=== PATIENT | female | born 1955 | race Caucasian/White ===

== ENCOUNTER → 2016-12-13 | Outpatient (CLI) | payer MEDICAID ==
[2016-12-13 13:20] LABS: ALT 26 U/L (9-52); AST 28 U/L (14-36); Alkaline Phosphatase 72 U/L (38-126); Anion Gap 12 mmol/L; Blood Urea Nitrogen 19 mg/dL (7-17); Calcium 9.8 mg/dL (8.4-10.2); Carbon Dioxide 29 mmol/L (22-30); Chloride 106 mmol/L (98-107); Glucose 128 mg/dL (74-99); Non-African American GFR(MDRD) 57 (>60 ml/min/1.73 sqM); Potassium 3.8 mmol/L (3.5-5.1); Sodium 147 mmol/L (137-145); Total Bilirubin 0.7 mg/dL (0.2-1.3); Total Protein 6.5 g/dL (6.3-8.2)
[2016-12-13 13:23] LABS: Basophils # (A) 0.1 k/uL (0-0.2); Basophils % (A) 1 %; CH 30.3; CHCM 34.7; Eosinophils # (A) 0.3 k/uL (0-0.7); Eosinophils % (A) 3 %; HCT 43.2 % (34.0-46.0); HGB 14.6 gm/dL (11.4-16.0); Luc # (Auto) 0.13; Luc % (Auto) 2; Lymphocytes # (A) 1.7 k/uL (1.0-4.8); Lymphocytes % (A) 20 %; MCH 29.7 pg (25.0-35.0); MCHC 33.8 g/dL (31.0-37.0); Mean Platelet Volume 7.8; Monocytes # (A) 0.5 k/uL (0-1.0); Monocytes % (A) 6 %; Neutrophils # (A) 5.6 k/uL (1.3-7.7); Neutrophils % (A) 69 %; RDW 14.6 % (11.5-15.5); WBC 8.2 k/uL (3.8-10.6); WBC (Perox) 7.98
[2016-12-13 13:53] LABS: Creatine Kinase MB 0.9 ng/mL (0.0-2.4); Troponin I <0.012 ng/mL (0.000-0.034)
== END ==
LOC: LABWHC1 11:57
PROVIDERS: ATTEND Family Medicine
DX: R07.9 Chest pain, unspecified (principal)
CPT/HCPCS: 36415; 80053; 82553; 84439; 84443; 84484; 85025

== ENCOUNTER → 2017-03-29 | Outpatient (CLI) | payer MEDICAID ==
--- NOTE | 2017-04-03 11:49 | MM ---
Reason for exam: screening (asymptomatic). Last mammogram was performed 1 year ago. History: Patient is postmenopausal. Family history of breast cancer in grandmother. Physical Findings: A clinical breast exam by your physician is recommended on an annual basis and results should be correlated with mammographic findings. MG Screening Mammo w CAD Bilateral CC and MLO view(s) were taken. Prior study comparison: March 27, 2016, bilateral MG screening mammo w CAD. March 26, 2015, bilateral MG screening mammo w CAD. March 02, 2014, bilateral digital screening mammo w/CAD. There is no discrete abnormality. ASSESSMENT: Negative, BI-RAD 1 RECOMMENDATION: Routine screening mammogram of both breasts in 1 year.
== END | disposition home or self-care (01) ==
LOC: RADMAMWWP 16:48
PROVIDERS: ATTEND Family Medicine
DX: Z12.31 Encounter for screening mammogram for malignant neoplasm of breast (principal)

== ENCOUNTER → 2017-12-11 | Outpatient (CLI) | payer MEDICAID | END | disposition home or self-care (01) | LOC: LABWHC1 16:06 | PROVIDERS: ATTEND Family Medicine | DX: M17.10 Unilateral primary osteoarthritis, unspecified knee (principal); R07.9 Chest pain, unspecified; M51.9 Unspecified thoracic, thoracolumbar and lumbosacral intervertebral disc disorder; M54.30 Sciatica, unspecified side | CPT/HCPCS: 80307 ==

== ENCOUNTER → 2018-05-28 | Outpatient (CLI) | payer MEDICAID ==
--- NOTE | 2018-05-30 09:56 | MM ---
Reason for exam: screening (asymptomatic). Last mammogram was performed 1 year and 2 months ago. History: Patient is postmenopausal. Family history of breast cancer in grandmother. Physical Findings: A clinical breast exam by your physician is recommended on an annual basis and results should be correlated with mammographic findings. MG Screening Mammo w CAD Bilateral CC and MLO view(s) were taken. Prior study comparison: March 29, 2017, bilateral MG screening mammo w CAD. March 27, 2016, bilateral MG screening mammo w CAD. There are scattered fibroglandular densities. Tortuous vessel medial left breast redemonstrated. No significant changes when compared with prior studies. ASSESSMENT: Negative, BI-RAD 1 RECOMMENDATION: Routine screening mammogram of both breasts in 1 year.
== END | disposition home or self-care (01) ==
LOC: RADMAMWWP 16:37
PROVIDERS: ATTEND Family Medicine
DX: Z12.31 Encounter for screening mammogram for malignant neoplasm of breast (principal)
CPT/HCPCS: 77067

== ENCOUNTER → 2018-06-11 | Outpatient (CLI) | payer MEDICAID | END | disposition home or self-care (01) | LOC: LABWHC1 06:42 | PROVIDERS: ATTEND Family Medicine | DX: M51.9 Unspecified thoracic, thoracolumbar and lumbosacral intervertebral disc disorder (principal); M54.30 Sciatica, unspecified side; Z68.35 Body mass index [BMI] 35.0-35.9, adult | CPT/HCPCS: 80362 ==

== ENCOUNTER → 2019-03-10 | Outpatient (CLI) | payer MEDICAID ==
[2019-03-10 16:37] LABS: Albumin 4.3 g/dL (3.80-4.90); Albumin/Globulin Ratio 2.26 (1.60-3.17); Anion Gap 6.9 mmol/L (4.00-12.00); Calcium 9.8 mg/dL (8.7-10.3); Carbon Dioxide 29.1 mmol/L (21.6-31.8); Globulin 1.9 g/dL (1.6-3.3); Potassium 4.5 mmol/L (3.5-5.5); Total Bilirubin 0.5 mg/dL (0.3-1.2); Total Protein 6.2 g/dL (6.2-8.2)
[2019-03-10 16:38] LABS: LDL Cholesterol,Calculated 117.2 mg/dL (0.0-131.0); VLDL Calculation 50.8 mg/dL (5.00-40.00)
== END | disposition home or self-care (01) ==
LOC: LABWHC1 10:06
PROVIDERS: ATTEND Family Medicine
DX: M51.9 Unspecified thoracic, thoracolumbar and lumbosacral intervertebral disc disorder (principal); M54.30 Sciatica, unspecified side; J01.10 Acute frontal sinusitis, unspecified; F11.20 Opioid dependence, uncomplicated
CPT/HCPCS: 36415; 80053; 80061

== ENCOUNTER → 2019-08-11 | Outpatient (CLI) | payer MEDICAID ==
--- NOTE | 2019-08-13 11:00 | MM ---
Reason for exam: screening (asymptomatic). Last mammogram was performed 1 year and 2 months ago. History: Patient is postmenopausal. Family history of breast cancer in grandmother. Physical Findings: A clinical breast exam by your physician is recommended on an annual basis and results should be correlated with mammographic findings. MG Screening Mammo w CAD Bilateral CC and MLO view(s) were taken. Prior study comparison: May 28, 2018, bilateral MG screening mammo w CAD. March 29, 2017, bilateral MG screening mammo w CAD. There are scattered fibroglandular densities. No significant changes when compared with prior studies. ASSESSMENT: Negative, BI-RAD 1 RECOMMENDATION: Routine screening mammogram of both breasts in 1 year.
== END ==
LOC: RADMAMWWP 16:12
PROVIDERS: ATTEND Family Medicine
DX: Z12.31 Encounter for screening mammogram for malignant neoplasm of breast (principal)
CPT/HCPCS: 77067

== ENCOUNTER → 2020-05-17 | Outpatient (CLI) | payer MEDICAID ==
[~2020-05-17] MED LIST: REGADENOSON 0.4 MG/5 ML SYRINGE IV ONE
--- NOTE | 2020-05-17 11:57 | NM ---
EXAMINATION TYPE: NM stress lexiscan cardiolite DATE OF EXAM: 05/17/2020 COMPARISON: NONE HISTORY: Chest pain TECHNIQUE: After the intravenous administration of 10.7 mCi Tc 99m Sestamibi - Cardiolite resting SP ECT images acquired 45 minutes post injection. The patient received 0.4mg Lexiscan, 26 mCi Tc 99m Sestamibi - Stress images obtained 80 minutes post injection FINDINGS: Review of stress and rest SPECT images demonstrates small area of reversible ischemia anteroseptal wa ll. Correlate clinically. No fixed defects seen. Gated analysis shows normal wall motion with an cierra mated left ventricular ejection fraction of 56 %. IMPRESSION: small area of reversible ischemia anteroseptal wall. Correlate clinically.
--- NOTE | 2020-05-17 13:34 | EST ---
EXERCISE STRESS AGE: 64 SEX: F HT: 62" WT: 180 lbs. PROTOCOL: Lexiscan Cardiolite STAGE: DURATION OF EXERCISE: HEART RATE REST: 61 BLOOD PRESSURE REST: 129/73 MAXIMUM HEART RATE ACHIEVED: 75 MAXIMUM BLOOD PRESSURE: 143/77 85% MPHR: 134 100% MPHR: 158 METS: INDICATIONS: Palpitations CLINICAL INFORMATION: Baseline rhythm is sinus mechanism, rate of 51, normal axis, intervals, nonspecific ST- T wave changes. Baseline blood pressure 129/70 mmHg. Patient received injection of Lexiscan. Electrocardiograph monitoring revealed no evidence of diagnostic ischemic ST deviation. Cardiolite was injected per protocol. CONCLUSION: 1. Nondiagnostic electrocardiograph stress testing. 2. Nuclear images will be reported separately. MMODL / IJN: [id number] /
== END | disposition home or self-care (01) ==
LOC: RADNMMAIN 08:08
PROVIDERS: ATTEND Family Medicine
DX: I25.9 Chronic ischemic heart disease, unspecified (principal); I48.92 Unspecified atrial flutter
CPT/HCPCS: 93017; 78452; A9500; J2785

== ENCOUNTER → 2020-06-24 | Outpatient (CLI) | payer MEDICAID ==
--- NOTE | 2020-06-25 11:52 | ECHOF ---
Referral Reason:R07.89 Chest Pain MEASUREMENTS -------- HEIGHT: 157.5 cm WEIGHT: 83.9 kg BP: 154/77 RVIDd: 2.2 cm (< 3.3) IVSd: 1.4 cm (0.6 - 1.1) LVIDd: 4.5 cm (3.9 - 5.3) LVPWd: 1.4 cm (0.6 - 1.1) EDV(Teich): 94 ml IVSs: 1.8 cm LVIDs: 3.4 cm LVPWs: 1.7 cm %IVS Thck: 24 % ESV(Teich): 48 ml EF(Teich): 49 % %FS: 25 % SV(Teich): 46 ml LA Diam: 3.6 cm (2.7 - 3.8) IVC: 2.0 cm LALs A4C: 5.5 cm LAAs A4C: 19.4 cm LAESV A-L A4C: 58 ml LAESV MOD A4C: 55 ml LALs A2C: 5.3 cm LAAs A2C: 15.1 cm LAESV A-L A2C: 37 ml LAESV MOD A2C: 35 ml LAESV(A-L): 47 ml LAESV Index (A-L): 25.33 ml/m Ao Diam: 3.3 cm (2.0 - 3.7) AV Cusp: 1.9 cm (1.5 - 2.6) MV EXCURSION: 13.666 mm (> 18.000) MV EF SLOPE: 44 mm/s (70 - 150) EPSS: 0.9 cm MV E Robbie: 0.86 m/s MV DecT: 293 ms MV Dec [place]: 2.9 m/s MV A Robbie: 1.07 m/s MV E/A Ratio: 0.80 MV PHT: 85 ms AV Vmax: 1.81 m/s AV maxP.10 mmHg AV Vmax: 1.82 m/s AV Vmean: 1.17 m/s AV maxP.32 mmHg AV meanP.17 mmHg AV Env.Ti: 323 ms AV VTI: 37.9 cm TR Vmax: 1.99 m/s TR maxP.86 mmHg RAP: 5.00 mmHg RVSP: 20.86 mmHg FINDINGS -------- Sinus rhythm. This was a technically adequate study. The left ventricular size is normal. There is moderate concentric left ventricular hypertrophy. O verall left ventricular systolic function is normal with, an EF between 60 - 65 %. The right ventricle is normal in size. Normal LA size by volume 22+/-6 ml/m2. The right atrium is normal in size. Interatrial and interventricular septum intact. The aortic valve is trileaflet and appears structurally normal. Mild mitral regurgitation is present. Mild tricuspid regurgitation present. Right ventricular systolic pressure is normal at < 35 mmHg. The pulmonic valve was not well visualized. The aortic root size is normal. Normal inferior vena cava with normal inspiratory collapse consistent with estimated right atrial pre ssure of 5 mmHg. There is no pericardial effusion. CONCLUSIONS -------- 1. The left ventricular size is normal. 2. There is moderate concentric left ventricular hypertrophy. 3. Overall left ventricular systolic function is normal with, an EF between 60 - 65 %. 4. Mild mitral regurgitation is present. 5. Mild tricuspid regurgitation present. 6. There is no pericardial effusion. PRIVACY DIRECTOR: Nancy Rachel RDCS
== END | disposition home or self-care (01) ==
LOC: RADECHMAIN 15:32
PROVIDERS: ATTEND Internal Medicine Interventional Cardiology
DX: I08.1 Rheumatic disorders of both mitral and tricuspid valves (principal)
CPT/HCPCS: 93306

== ENCOUNTER 2020-06-28 07:51 | Day surgery (SDC) | payer MEDICAID ==
[2020-06-23 15:23] VITALS: BMI 33.8
[~2020-06-28 07:51] MED LIST changes: +ALPRAZolam 0.25 MG TAB PO PRN; +ALPRAZolam 0.5 MG TAB PO PRN; +ASPIRIN 325 MG TAB PO ONE; +ATORVASTATIN 80 MG TAB PO ONE; +NITROGLYCERIN SL TABS 0.4 MG TAB SUBLINGUAL PRN; -REGADENOSON 0.4 MG/5 ML SYRINGE IV ONE; +SODIUM CHLORIDE 0.9% 1,000 ML in EMPTY BAG 1 BAG IV ONE
[2020-06-28 08:25] LABS: Basophils # (A) 0.1 k/uL (0-0.2); Basophils % (A) 1 %; Eosinophils # (A) 0.6 k/uL (0-0.7); Eosinophils % (A) 6 %; HCT 37.9 % (34.0-46.0); HGB 12.6 gm/dL (11.4-16.0); Lymphocytes # (A) 2.7 k/uL (1.0-4.8); Lymphocytes % (A) 30 %; MCH 28.6 pg (25.0-35.0); MCHC 33.4 g/dL (31.0-37.0); MCV 85.7 fL (80.0-100.0); Mean Platelet Volume 8.1; Monocytes # (A) 0.7 k/uL (0-1.0); Monocytes % (A) 7 %; Neutrophils % (A) 54 %; Platelet Count 262 k/uL (150-450); RBC 4.42 m/uL (3.80-5.40); RDW 14.5 % (11.5-15.5); WBC 9.2 k/uL (3.8-10.6)
[2020-06-28 08:31] VITALS: RESP 16; TEMP 97.8
[2020-06-28 08:35] LABS: Calcium 9.2 mg/dL (8.4-10.2)
[2020-06-28] MEDS ORDERED: LIDOCAINE 1% INJ 10MG/ML (20 ML MDV) SQ ONE ×2 (10:07→10:18)
[2020-06-28] MEDS ORDERED: fentaNYL (PF) 50 MCG/ML 2 ML AMP IVP ONE (10:07)
[2020-06-28] MEDS ORDERED: IOPAMIDOL-370 125ML BTL INJ ONE (10:24)
[2020-06-28] MEDS ORDERED: RX INFO: IV CONTRAST WAS GIVEN 1 EACH MISC MISCELLANE PRN (10:39)
[2020-06-28] MEDS ORDERED: SODIUM CHLORIDE 0.9% 1,000 ML IV SCH (10:45)
--- NOTE | 2020-06-28 12:32 | CC ---
CARDIAC CATHETERIZATION REPORT Mrs. Bailey is a 64-year-old female with a history of hypertension, hyperlipidemia, who has been complaining of chest discomfort. She had an abnormal myocardial perfusion imaging with evidence of stress-induced ischemia involving the anterior wall. In view of that, recommendation made regarding cardiac catheterization. The procedures, risks, and complication were discussed with the patient who is in full understanding and agreement. PROCEDURE: Patient was brought to director of laboratory operations in a fasting semi-sedated state after receiving fentanyl and Benadryl and achieving moderate conscious sedated state. Using Xylocaine anesthesia and Seldinger technique, a 6-Northern Irish sheath was introduced in the right radial artery. There was severe spasm and in view of that, catheters were removed and a TR band was placed felt. Subsequently, using Xylocaine anesthesia and Seldinger technique, a 6-Northern Irish sheath was introduced in the right femoral artery. Selective right and left coronary angiography performed using 6-Northern Irish, 4 bend right and left Stephan catheter. Multiple views of the coronary artery including hemiaxial views were obtained. Following that, the 6-Northern Irish tight pigtail catheter was introduced into the left ventricle and pressures were calculated. Following that, catheter and sheath were removed. Hemostasis was obtained with deployment of an Angio-Seal. There was no immediate complication. Patient is returned to room in stable condition. FINDINGS: 1. LEFT MAIN: This is a short size vessel, bifurcating into left circumflex, left anterior descending artery. Left main coronary artery has no evidence of high- grade stenosis. 2. LEFT ANTERIOR DESCENDING ARTERY: This is a large-sized vessel, tapers down distal third, giving rise to a large diagonal branch proximally and the anterior descending artery as well as branches have no evidence of obstructive disease. 3. LEFT CIRCUMFLEX: This is a large dominant vessel, giving rise to 2 obtuse marginal branches, the second one is large in caliber,. distally bifurcating into PDA and posterolateral segment and branches. The right coronary artery as and its branches have no evidence of obstructive coronary artery disease. 4. RIGHT CORONARY ARTERY: This is a small nondominant vessel that has no evidence of high-grade stenosis. 5. LEFT VENTRICULOGRAM: Left ventriculogram not performed. 6. HEMODYNAMICS: There was no gradient across the aortic valve. The left ventricular end-diastolic pressure was 16-18 mmHg. CONCLUSION: 1. Normal coronary arteries. 2. Left dominance. RECOMMENDATION: In view of finding anatomy, I recommend to continue medical therapy with aggressive risk modifications being initiated. Those findings and recommendation were discussed with the patient and her family and they are in full understanding and agreement. Duration of sedation: 25 minutes. ASHLEY / DAVID: [id number] /
--- NOTE | 2020-06-28 12:39 | LTR ---
DATE OF SERVICE: 06/28/2020 RE: Antonette Bailey Dear Dr. Cotto: I had the pleasure to perform cardiac catheterization on Mrs. Bailey at [facility] on June 28, 2020 and a full copy of the procedure note will be forwarded to you. In brief, she was found to have no evidence of obstructive coronary artery disease. Based on those findings, I recommend continue medical therapy with aggressive risk modifications being initiated. Thank you again from allowing me to participate in this patient's care. Please feel free to call for any questions. Sincerely yours, MD DAISY GarciaL / COURTNEYN: [id number] /
[2020-06-28 13:56] VITALS: BP 169/74; PULSE 52
[2020-06-28] MEDS ORDERED: METOPROLOL TARTRATE 50 MG TAB PO SCH (21:00)
[2020-06-28] MEDS ORDERED: cloNIDine HCL 0.2 MG TAB PO SCH (21:00)
[2020-06-29] MEDS ORDERED: allopurinoL 100 MG TAB PO SCH (09:00)
[2020-06-29] MEDS ORDERED: ASPIRIN 81 MG PO SCH (09:00)
== END 2020-06-28 16:57 | disposition home or self-care (01) ==
LOC: CATHCVL 07:51
PROVIDERS: ATTEND Internal Medicine Interventional Cardiology
DX: R07.89 Other chest pain (principal); R94.39 Abnormal result of other cardiovascular function study; I10 Essential (primary) hypertension; E78.2 Mixed hyperlipidemia; K21.9 Gastro-esophageal reflux disease without esophagitis; Z79.82 Long term (current) use of aspirin; Z79.1 Long term (current) use of non-steroidal anti-inflammatories (NSAID); Z79.899 Other long term (current) drug therapy; Z87.891 Personal history of nicotine dependence; Z90.49 Acquired absence of other specified parts of digestive tract; Z98.890 Other specified postprocedural states; Z91.041 Radiographic dye allergy status
CPT/HCPCS: 93458; 80048; 85025; C1760; C1769 ×2; C1894; J2001; J3010; Q9967

== ENCOUNTER → 2020-07-02 | Outpatient (CLI) | payer MEDICAID ==
[2020-07-02 16:32] LABS: African American GFR (CKD) 56.1 (60.0-200.0); Albumin 3.8 g/dL (3.80-4.90); Albumin/Globulin Ratio 1.9 (1.60-3.17); Anion Gap 6.9 mmol/L (4.00-12.00); BUN/Creat Ratio 17.5 Ratio (12.00-20.00); Calcium 9.4 mg/dL (8.7-10.3); Carbon Dioxide 29.1 mmol/L (21.6-31.8); Chol/HDL Ratio 6.17; Non-African American GFR(CKD) 48.4 (60.0-200.0); Total Bilirubin 0.4 mg/dL (0.2-1.2); Total Protein 5.8 g/dL (6.2-8.2)
== END | disposition home or self-care (01) ==
LOC: LABWHC1 07:31
PROVIDERS: ATTEND Internal Medicine Interventional Cardiology
DX: E78.2 Mixed hyperlipidemia (principal)
CPT/HCPCS: 36415; 80053; 80061; 83721

== ENCOUNTER → 2020-08-16 | Outpatient (CLI) | payer MEDICAID ==
--- NOTE | 2020-08-17 14:17 | MM ---
Reason for exam: screening (asymptomatic). Last mammogram was performed 1 year ago. History: Patient is postmenopausal. Family history of breast cancer in grandmother. Physical Findings: A clinical breast exam by your physician is recommended on an annual basis and results should be correlated with mammographic findings. MG Screening Mammo w CAD Bilateral CC and MLO view(s) were taken. Prior study comparison: August 11, 2019, bilateral MG screening mammo w CAD. May 28, 2018, bilateral MG screening mammo w CAD. There are scattered fibroglandular densities. There is no discrete abnormality. No significant changes when compared with prior studies. ASSESSMENT: Negative, BI-RAD 1 RECOMMENDATION: Routine screening mammogram of both breasts in 1 year.
== END | disposition home or self-care (01) ==
LOC: RADMAMWWP 15:48
PROVIDERS: ATTEND Family Medicine
DX: Z12.31 Encounter for screening mammogram for malignant neoplasm of breast (principal)
CPT/HCPCS: 77067

== ENCOUNTER → 2021-05-02 | Outpatient (CLI) | payer MEDICAID ==
[2021-05-03 13:19] LABS: Alt. alternata IgE Class CLASS 0; Alternaria alternata IgE <0.10 kU/L (<0.10); Asperg. fumagatus IgE <0.10 kU/L (<0.10); Asperg. fumagatus IgE Class CLASS 0; Bermuda Grass IgE <0.10 kU/L (<0.10); Birch(Com.Silvr) IgE <0.10 kU/L (<0.10); Birch(Com.Silvr) IgE Class CLASS 0; Cat Epith & Dander IgE <0.10 kU/L (<0.10); Cat Epith & Dander IgE Class CLASS 0; Clad herbarum IgE <0.10 kU/L (<0.10); Clad herbarum IgE Class CLASS 0; Cockroach IgE <0.10 kU/L (<0.10); Cottonwood IgE <0.10 kU/L (<0.10); Dermato. Pteronyssinus Class CLASS 0; Dermato. Pteronyssinus IgE <0.10 kU/L (<0.10); Dermato. farinae IgE <0.10 kU/L (<0.10); Dermato. farinae IgE Class CLASS 0; Dog Dander IgE <0.10 kU/L (<0.10); Elm IgE <0.10 kU/L (<0.10); IgE (Allergen) 9.2 IU/mL (<114.0); Maple (Box Elder) IgE <0.10 kU/L (<0.10); Maple (Box Elder) IgE Class CLASS 0; Mountain Cedar IgE <0.10 kU/L (<0.10); Mountain Cedar IgE Class CLASS 0; Mouse Urine IgE Class CLASS 0; Mouse Urine Proteins,IgE <0.10 kU/L (<0.10); Nettle IgE <0.10 kU/L (<0.10); Nettle IgE Class CLASS 0; Oak IgE <0.10 kU/L (<0.10); Penicillium chrysogenum IgE <0.10 kU/L (<0.10); Penicillium chrysogenum IgE Cl CLASS 0; Rough Marshelder IgE <0.10 kU/L (<0.10); Rough Marshelder IgE Class CLASS 0; Timothy Grass IgE <0.10 kU/L (<0.10); Timothy Grass IgE Class CLASS 0; White Ash IgE Class CLASS 0
[2021-05-04 19:07] LABS: Corn IgG 5.9 mcg/mL (< 2.0); Cow's Milk IgG 49.8 mcg/mL (< 2.0); Peanut IgG 2.1 mcg/mL (< 2.0); Potato IgG <2.0 mcg/mL (< 2.0); Wheat IgG 3.6 mcg/mL (< 2.0)
[2021-05-04 19:08] LABS: Soybean IgG 2.6 mcg/mL (< 2.0); Tomato IgG 3.7 mcg/mL (< 2.0)
== END | disposition home or self-care (01) ==
LOC: LABWHC1 10:47
PROVIDERS: ATTEND Family Medicine
DX: R19.7 Diarrhea, unspecified (principal)
CPT/HCPCS: 36415; 82785; 86001; 86003

== ENCOUNTER → 2021-06-03 | Outpatient (CLI) | payer MEDICAID ==
[2021-06-03 13:30] LABS: Basophils # (A) 0.06 X 10*3/uL (0.00-0.10); Basophils % (A) 0.7 %; Eosinophils # (A) 0.42 X 10*3/uL (0.04-0.35); Eosinophils % (A) 4.6 %; HCT 33.6 % (37.2-46.3); HGB 10.7 g/dL (12.0-15.0); Lymphocytes # (A) 2.37 X 10*3/uL (0.90-5.00); Lymphocytes % (A) 25.8 %; MCH 28.7 pg (27.0-32.0); MCHC 31.8 g/dL (32.0-37.0); MCV 90.1 fL (80.0-97.0); Mean Platelet Volume 11.7 fL (9.5-12.2); Monocytes # (A) 0.82 X 10*3/uL (0.20-1.00); Monocytes % (A) 8.9 %; Neutrophils # (A) 5.47 X 10*3/uL (1.80-7.70); Neutrophils % (A) 59.7 %; Platelet Count 273 X 10*3/uL (140-440); RBC 3.73 X 10*6/uL (4.10-5.20); RDW 14.3 % (11.5-14.5); WBC 9.17 X 10*3/uL (4.50-10.00)
[2021-06-03 18:24] LABS: African American GFR (CKD) 39.3 (60.0-200.0); Albumin 3.8 g/dL (3.80-4.90); Albumin/Globulin Ratio 1.73 (1.60-3.17); Anion Gap 10.4 mmol/L (4.00-12.00); BUN/Creat Ratio 15.63 Ratio (12.00-20.00); Calcium 9.2 mg/dL (8.7-10.3); Carbon Dioxide 25.6 mmol/L (21.6-31.8); Globulin 2.2 g/dL (1.6-3.3); Non-African American GFR(CKD) 33.9 (60.0-200.0); Total Bilirubin 0.3 mg/dL (0.2-1.2)
[2021-06-04 02:04] LABS: Immunoglobulin E 5.27 IU/mL (0.00-114.00)
== END | disposition home or self-care (01) ==
LOC: LABWHC1 07:15
PROVIDERS: ATTEND Allergy & Immunology
DX: K52.9 Noninfective gastroenteritis and colitis, unspecified (principal)
CPT/HCPCS: 36415; 80053; 82150; 82784; 82785; 83516; 83690; 85025

== ENCOUNTER → 2021-06-20 | Outpatient (CLI) | payer MEDICAID ==
[2021-06-20 11:47] LABS: Basophils # (A) 0.04 X 10*3/uL (0.00-0.10); Basophils % (A) 0.3 %; Eosinophils # (A) 0.49 X 10*3/uL (0.04-0.35); Eosinophils % (A) 3.9 %; HCT 33.4 % (37.2-46.3); HGB 10.7 g/dL (12.0-15.0); Lymphocytes # (A) 2.81 X 10*3/uL (0.90-5.00); Lymphocytes % (A) 22.6 %; MCH 28.3 pg (27.0-32.0); MCV 88.4 fL (80.0-97.0); Mean Platelet Volume 11.2 fL (9.5-12.2); Monocytes # (A) 0.78 X 10*3/uL (0.20-1.00); Monocytes % (A) 6.3 %; Neutrophils # (A) 8.26 X 10*3/uL (1.80-7.70); Neutrophils % (A) 66.6 %; Platelet Count 322 X 10*3/uL (140-440); RBC 3.78 X 10*6/uL (4.10-5.20); RDW 13.9 % (11.5-14.5); WBC 12.42 X 10*3/uL (4.50-10.00)
[2021-06-20 11:54] LABS: Protein, Total 6.1 g/dL (6.2-8.2)
[2021-06-22 12:39] LABS: IgG Subclass 3 29.6 mg/dL (11.0-85.0); IgG Subclass 4 17.4 mg/dL (3.0-175.0)
== END | disposition home or self-care (01) ==
LOC: LABWHC1 07:18
PROVIDERS: ATTEND Allergy & Immunology
DX: D80.1 Nonfamilial hypogammaglobulinemia (principal); K52.9 Noninfective gastroenteritis and colitis, unspecified
CPT/HCPCS: 36415; 82784; 82787; 84165; 85025; 86334

== ENCOUNTER → 2021-07-12 | Outpatient (CLI) | payer MEDICAID ==
[2021-07-12 11:06] LABS: Basophils # (A) 0.05 X 10*3/uL (0.00-0.10); Basophils % (A) 0.5 %; Eosinophils # (A) 0.45 X 10*3/uL (0.04-0.35); Eosinophils % (A) 4.8 %; HCT 35.2 % (37.2-46.3); HGB 11.2 g/dL (12.0-15.0); Lymphocytes # (A) 3.16 X 10*3/uL (0.90-5.00); Lymphocytes % (A) 33.4 %; MCHC 31.8 g/dL (32.0-37.0); Mean Platelet Volume 11.2 fL (9.5-12.2); Monocytes # (A) 0.82 X 10*3/uL (0.20-1.00); Monocytes % (A) 8.7 %; Neutrophils # (A) 4.93 X 10*3/uL (1.80-7.70); Neutrophils % (A) 52.2 %; Platelet Count 313 X 10*3/uL (140-440); Reticulocyte % 2.14 % (0.10-1.80); WBC 9.45 X 10*3/uL (4.50-10.00)
[2021-07-12 12:14] LABS: % Iron Saturation 11.93 (12.00-45.00)
== END | disposition home or self-care (01) ==
LOC: LABWHC1 07:08
PROVIDERS: ATTEND Family Medicine
DX: F11.20 Opioid dependence, uncomplicated (principal); G43.009 Migraine without aura, not intractable, without status migrainosus; K21.9 Gastro-esophageal reflux disease without esophagitis; M10.9 Gout, unspecified
CPT/HCPCS: 36415; 83540; 83550; 85025; 85045

== ENCOUNTER → 2021-11-18 | Outpatient (CLI) | payer MEDICAID ==
--- NOTE | 2021-11-21 13:21 | MM ---
Reason for exam: screening (asymptomatic). Last mammogram was performed 1 year and 3 months ago. History: Patient is postmenopausal. Family history of breast cancer in grandmother. Physical Findings: A clinical breast exam by your physician is recommended on an annual basis and results should be correlated with mammographic findings. MG Screening Mammo w CAD Bilateral CC and MLO view(s) were taken. Prior study comparison: August 16, 2020, bilateral MG screening mammo w CAD. August 11, 2019, bilateral MG screening mammo w CAD. There are scattered fibroglandular densities. No significant changes when compared with prior studies. ASSESSMENT: Benign, BI-RAD 2 RECOMMENDATION: Routine screening mammogram of both breasts in 1 year.
== END | disposition home or self-care (01) ==
LOC: RADMAMWWP 16:34
PROVIDERS: ATTEND Family Medicine
DX: Z12.31 Encounter for screening mammogram for malignant neoplasm of breast (principal); Z78.0 Asymptomatic menopausal state; Z80.3 Family history of malignant neoplasm of breast
CPT/HCPCS: 77067

== ENCOUNTER → 2022-01-09 | Outpatient (CLI) | payer MEDICAID ==
--- NOTE | 2022-01-09 15:33 | XR ---
Bilateral hips HISTORY: Pain 2 views of each hip submitted Marginal spurring is noted greater on the left, correlate for possible femoral acetabular impingement . There is some concentric joint space loss. No fracture or dislocation evident. IMPRESSION: Osteoarthritic changes as described, correlate for femoral acetabular impingement on the left
== END | disposition home or self-care (01) ==
LOC: RADXRMAIN 12:51
PROVIDERS: ATTEND Family Medicine
DX: M25.551 Pain in right hip (principal); M16.12 Unilateral primary osteoarthritis, left hip
CPT/HCPCS: 73521

== ENCOUNTER → 2022-03-06 | Outpatient (CLI) | payer MEDICAID ==
--- NOTE | 2022-03-07 04:24 | MR ---
EXAMINATION TYPE: MR lumbar spine wo con DATE OF EXAM: 03/06/2022 COMPARISON: None HISTORY: Low back pain that radiates down right leg. Multiplanar multiecho imaging of the lumbar spine without contrast. The lumbar vertebra have fairly normal alignment. There is a minimal 3 mm subluxation at L4-5. No spo ndylolysis. There is small posterior disc bulging at L4-5 and L1-2. There is component of disc hernia tion along the posterior longitudinal ligament at the L2 level. There is developmentally adequate spi nal canal. No spinal stenosis. No lumbar paraspinal mass. Visualized sacroiliac joints are intact. No compression fracture. No evidence of focal bone destruction. There is a Schmorl node on the superior endplate of L3. There is mild left-sided L4-5 neural foraminal narrowing due to the disc bulging. There is L3-4 right side neural foraminal narrowing due to mild disc space narrowing and facet arthropathy. IMPRESSION: There is a mild degenerative first degree L4-5 spondylolisthesis. Minimal posterior disc bulging seen at L1-2 and L4-5 without significant impingement on the spinal canal. There is slight elevation of t he posterior longitudinal ligament at L2 level due to the L1-2 disc bulging and herniation. Bilateral neural foraminal mild narrowing as above at L4-5 in the left side and L3-4 on the right bibiana e..
== END | disposition home or self-care (01) ==
LOC: RADMRIMAIN 17:44
PROVIDERS: ATTEND Physical Medicine & Rehabilitation
DX: M43.16 Spondylolisthesis, lumbar region (principal); M47.26 Other spondylosis with radiculopathy, lumbar region; M51.16 Intervertebral disc disorders with radiculopathy, lumbar region; M99.73 Connective tissue and disc stenosis of intervertebral foramina of lumbar region
CPT/HCPCS: 72148

== ENCOUNTER → 2022-03-29 | Outpatient (CLI) | payer MEDICAID ==
[2022-03-29 15:27] LABS: INR 0.9 (<1.2); Partial Thromboplastin Time 24.7 sec (22.0-30.0); Prothrombin Time 10.3 sec (9.0-12.0)
[2022-03-29 18:33] LABS: African American GFR (CKD) 60.8 (60.0-200.0); Albumin/Globulin Ratio 1.82 (1.60-3.17); Anion Gap 9.5 mmol/L (10.00-18.00); BUN/Creat Ratio 16.85 Ratio (12.00-20.00); Blood Urea Nitrogen 18.7 mg/dL (9.0-27.0); Calcium 9.5 mg/dL (8.7-10.3); Carbon Dioxide 26.7 mmol/L (20.0-27.5); Globulin 2.2 g/dL (1.6-3.3); Non-African American GFR(CKD) 52.4 (60.0-200.0); Potassium 4.1 mmol/L (3.5-5.5); Total Bilirubin 0.3 mg/dL (0.30-1.20); Total Protein 6.1 g/dL (6.2-8.2)
[2022-03-29 18:37] LABS: Basophils # (A) 0.05 X 10*3/uL (0.00-0.10); Basophils % (A) 0.6 %; Eosinophils # (A) 0.38 X 10*3/uL (0.04-0.35); Eosinophils % (A) 4.5 %; HCT 37.1 % (37.2-46.3); HGB 11.1 g/dL (12.0-15.0); Immature Grans, Automated 0.4 %; Lymphocytes # (A) 1.62 X 10*3/uL (0.90-5.00); Lymphocytes % (A) 19.1 %; MCH 25.7 pg (27.0-32.0); MCHC 29.9 g/dL (32.0-37.0); MCV 85.9 fL (80.0-97.0); Mean Platelet Volume 11.6 fL (9.5-12.2); Monocytes # (A) 0.66 X 10*3/uL (0.20-1.00); Monocytes % (A) 7.8 %; NRBC Per 100 WBC 0 /100 WBCS (0.0-0.0); Neutrophils # (A) 5.76 X 10*3/uL (1.80-7.70); Neutrophils % (A) 67.6 %; Platelet Count 355 X 10*3/uL (140-440); RBC 4.32 X 10*6/uL (4.10-5.20); RDW 15.2 % (11.5-14.5)
[2022-03-29 20:43] LABS: Appearance,Urine Clear (Clear); Bilirubin,Urine Negative (Negative); Blood,Urine Negative (Negative); Color,Urine Yellow (Yellow); Ketones,Urine Trace mg/dL (Negative); Nitrite,Urine Negative (Negative); PH, Urine 5.5 (5.0-8.0); Specific Gravity,Urine 1.025 (1.001-1.030)
== END | disposition home or self-care (01) ==
LOC: LABPAT 13:12
PROVIDERS: ATTEND Orthopaedic Surgery
DX: Z01.812 Encounter for preprocedural laboratory examination (principal); M17.12 Unilateral primary osteoarthritis, left knee
CPT/HCPCS: 80053; 81003; 85025; 85610; 85730; 87070

== ENCOUNTER → 2022-03-29 | Outpatient (CLI) | payer MEDICAID | END | disposition home or self-care (01) | LOC: LABWHC1 13:17 | PROVIDERS: ATTEND Family Medicine | DX: Z53.9 Procedure and treatment not carried out, unspecified reason (principal) ==

== ENCOUNTER 2022-04-24 07:53 | Day surgery (SDC) | payer MEDICAID ==
[2022-04-18 17:56] VITALS: BMI 32.9
[~2022-04-24 07:53] MED LIST changes: +ACETAMINOPHEN TAB 500 MG TAB PO PRN; -ALPRAZolam 0.25 MG TAB PO PRN; -ALPRAZolam 0.5 MG TAB PO PRN; -ASPIRIN 325 MG TAB PO ONE; -ATORVASTATIN 80 MG TAB PO ONE; +DEXAMETHASONE SOD PHOSPHATE 4 MG/ML 1 ML VIAL IV ONE; +GABAPENTIN 300 MG CAP PO PRN; +HYDROmorphone 0.5 MG/0.5 ML SYRINGE IVP PRN; +LACTATED RINGERS 1,000 ML IV SCH; +MELOXICAM 7.5 MG TAB PO PRN; +MIDAZOLAM 2 MG/2 ML VIAL IV PRN; -NITROGLYCERIN SL TABS 0.4 MG TAB SUBLINGUAL PRN; +ONDANSETRON 4 MG/2 ML VIAL IVP ONE; +SCOPOLAMINE 1 MG/72 HR PATCH TRANSDERM ONE; -SODIUM CHLORIDE 0.9% 1,000 ML in EMPTY BAG 1 BAG IV ONE; +TRANEXAMIC ACID IN NACL,ISO-OS 1,000 MG in SALINE 1 100ML.BAG IVPB PRN
[2022-04-24 09:39] LABS: Glucose,Whole Blood 166 mg/dL (70-110)
[2022-04-24] MEDS ORDERED: MIDAZOLAM 2 MG/2 ML VIAL IV ONE (09:51)
[2022-04-24] MEDS ORDERED: DEXAMETHASONE SOD PHOSPHATE 4 MG/ML 1 ML VIAL ONE (10:12)
[2022-04-24] MEDS ORDERED: SUCCINYLCHOLINE CHLORIDE 100 MG/5 ML SYR IV ONE (10:12)
[2022-04-24] MEDS ORDERED: ROPIVACAINE 5 MG/ML 30 ML VIAL ONE (10:12)
[2022-04-24] MEDS ORDERED: TRANEXAMIC ACID IN NACL,ISO-OS 1,000 MG/100 ML BAG ONE (10:12)
[2022-04-24] MEDS ORDERED: PROPOFOL 10 MG/ML 20 ML VIAL IV ONE (10:12)
[2022-04-24] MEDS ORDERED: fentaNYL (PF) 50 MCG/ML 2 ML AMP ONE (10:12)
[2022-04-24] MEDS ORDERED: HYDROmorphone (PF) 1 MG/ML ONE (10:12)
[2022-04-24] MEDS ORDERED: LIDOCAINE 2% INJ 20 MG/ML (2 ML VIAL) ONE (10:12)
[2022-04-24] MEDS ORDERED: MIDAZOLAM 2 MG/2 ML VIAL ONE (10:12)
[2022-04-24] MEDS ORDERED: ceFAZolin 1,000 MG in SODIUM CHLORIDE 0.9% 1,000 ML IRRIGATION ONE (10:28)
--- NOTE | 2022-04-24 10:59 | P.ANPRN ---
Procedure Note - Anesthesia - Nerve Block Performed Left Adductor Canal Infusion Time Out Performed: Yes Date of Procedure: 04/24/22 Procedure Start Time: 09:50 Procedure Stop Time: 10:01 Location of Patient: PreOp Indication: Acute Post-Operative Pain, Requested by Surgeon Sedation Type: Sedate with meaningful contact maintained Preparation: Sterile Prep, Sterile Dressing Position: Supine Catheter: Indwelling Needle Types: On-Q Needle Gauge: 18 Ultrasound used to visualize needle placement: Yes Ultrasound used to observe medication spread: Yes Injectate: 0.5% Ropivacaine (see comment for volume) (15 ml + decadron 2 mg) Blood Aspirated: No Pain Paresthesia on Injection Noted: No Resistance on Injection: Normal Image Stored and Saved: Yes Events: Uneventful and Well Tolerated Left iPack Single Time Out Performed: Yes Date of Procedure: 04/24/22 Procedure Start Time: 10:02 Procedure Stop Time: 10:09 Location of Patient: PreOp Indication: Acute Post-Operative Pain, Requested by Surgeon Sedation Type: Sedate with meaningful contact maintained Preparation: Sterile Prep, Sterile Dressing Position: Supine Catheter: None Needle Types: Pajunk Needle Gauge: 20 Ultrasound used to visualize needle placement: Yes Ultrasound used to observe medication spread: Yes Injectate: 0.5% Ropivacaine (see comment for volume) (15 ml + decadron 2 mg) Blood Aspirated: No Pain Paresthesia on Injection Noted: No Resistance on Injection: Normal Image Stored and Saved: Yes Events: Uneventful and Well Tolerated
[2022-04-24] MEDS ORDERED: ROPIVACAINE 0.2%-NS ON-Q PUMP 1,090 MG, EMPTY PAIN BALL 1 EACH MISCELLANE PRN (11:00)
--- NOTE | 2022-04-24 11:24 | P.OP ---
Date of Procedure: 04/24/22 Preoperative Diagnosis: Severe osteoarthritis left knee Postoperative Diagnosis: Severe osteoarthritis left knee Procedure(s) Performed: Left total knee arthroplasty Implants: Murguia [employer] Nephew Journey II CR Oxinium Bi-cruciate retaining femoral component size 5, left [employer]hew Journey nonporous tibial baseplate size 3, left M[employer] Nephew Journey II, CR articular insert, size 9 mm, Size 3-4, left [employer]hew Journey Susana II resurfacing patellar component, oval, 29 mm All components were cemented using Palacos R bone cement The articulation is Oxinium on polyethylene Anesthesia: ALEC Surgeon: Blaine Joe [employer] And Maintenance Supervisor #1: Qi Coto Estimated Blood Loss (ml): 30 Pathology: other (Bone and cartilage) Condition: stable Disposition: PACU Indications for Procedure: After failure of conservative treatment we discussed the surgical and nonsurgical treatment options at length. Patient wishes to proceed with a total knee arthroplasty. Complications specific to this procedure were discussed at length, including but not limited to infection, bleeding, stiffness, and nerve injury. Covid-19 was also discussed at length with the patient, and they are aware of the current policies and procedures. The patient was given the option of delaying surgery, but they elect to proceed knowing these risks. Patient is aware of all these complications and informed consent was obtained Operative Findings: The operative findings are consistent with severe osteoarthritis of the left knee Description of Procedure: Patient was seen in the preoperative area and the consent was reviewed and the operative site was marked with a skin marker. The patient verified the procedure and the operative site. An adductor canal pain catheter and an iPACK block was placed by anesthesia in the preoperative area. The patient was then brought to the operating room and given preoperative antibiotics intravenously. A gram of transexamic acid was given intravenously. A spinal anesthetic was administered by the anesthesia department. A tourniquet was placed on the upper thigh and the lower extremity was prepped with chlorhexidine and draped in usual sterile fashion. A universal timeout was then performed which confirmed the patient's name, surgical site, ALLERGIES, and consent. The lower extremity was then exsanguinated and tourniquet was inflated to 250 mmHg. A standard anterior midline approach to the knee was performed. The skin and subcutaneous tissue were sharply dissected down to the patellar tendon. A medial parapatellar arthrotomy was then performed. The knee was then extended, the patellar was everted, and the knee was again flexed. The infra-patellar fat pad was removed in order to enhance exposure. The anterior horns of both menisci were excised, and a release was performed to the posterior medial aspect of the knee. On gross visual inspection, there was complete loss of articular cartilage in the medial and patellofemoral joint spaces. There was also significant cartilage damage in the lateral compartment. There were multiple periarticular osteophytes globally about the knee which were then removed with a Ronguer. The femoral canal was then opened with the 9.5 mm intramedullary drill. The 8 mm intramedullary real was then inserted into the femoral canal with the distal femoral cutting guide set for 5 of valgus. The distal femoral cutting block was then pinned in place. The intramedullary real was then removed, and the distal femur was then cut. The cutting block was then removed and the cut was checked for symmetry. The resected bone was then measured to confirm the appropriate distal femoral resection. Next, the sizing guide was then placed and set for 3 external rotation based off of the epicondylar axis and Whitesides line. Pins were then placed and the drill holes, and the femur was sized with the sizing stylus. The pins were then removed, and the sizing guide was then removed. The spikes of the femoral block was then placed into the predrilled holes, and malleted into place. Two 45 mm pins were then placed into the fixation holes on the cutting block. An sharlene wing was then used to ensure there would be no notching with the anterior cut. The anterior condyles were cut without notching. The anterior chord cut was then performed, followed by the posterior cut, posterior chamfer cut, and the anterior chamfer cut. The collateral ligaments were protected during the entire process. The cutting block was then removed. Any remaining bone and osteophytes were removed from the femur with a Ronguer. The femoral canal was plugged with autologous bone. Attention was then directed to the tibia. The remaining ACL was removed with a Ronguer, and the tibia was then gently subluxed forward with a large bent knee retractor. Any remaining menisci were excised. The posterior lateral corner was cauterized in order to coagulate the lateral geniculate artery. The extra medullary tibial cutting guide was then placed, set for the appropriate rotation, slope, and depth of resection. The proximal tibia cutting guide was then pinned in place. Proximal tibia was then cut and sized. The femoral trial was placed. The guide for the box cut was then placed in the bone for the femoral box was reamed and removed. The constrained trial was then placed. The tibial trial was placed with the appropriate-sized insert. The knee was able to fully extend and flex to 130 and was stable throughout all range of motion. The knee was then extended and the patella was everted. Patella was then measured, and then using an osteotomy guide, the patella was cut at the appropriate level. The patella was then measured and drilled and the patella trial was then placed. The knee was then taken through range of motion with the patella trial and the patella tracked normally using the no thumbs technique. The knee was then extended patella trial was then removed and the patella was everted. Knee was then flexed and lug holes were drilled through the femoral trial and the femoral trial was then removed. The tibial was then re-exposed, and the tibial broach guide was then pinned in place after it was set for the appropriate rotation to allow for the most coverage without overhang. The tibia was then reamed and broached. The cut surfaces of bone were then irrigated with pulsatile lavage. The knee was also irrigated with Irrisept solution. The components were then opened, the cement was mixed, and the components were then cemented in place. The cement was allowed to harden with the knee in full extension. After the cemented hardened, the tourniquet was released and hemostasis was obtained. A second gram of transexamic acid was given intravenously. The knee was again irrigated. The knee was again taken through range of motion and found to be stable throughout all range of motion of 0-130, and the patella tracked normally. The fascia was then closed with 0 Vicryl followed by #2 strata fix suture. The subcutaneous tissue was closed with 3-0 Vicryl and 3-0 strata fix. Exofin glue was used for the skin and placed with the knee in flexion. After the glue had dried, and Optafoam silver impregnated dressing was applied. The patient was then transferred to recovery room in stable condition. The application assistant FRANCOIS Scherer was required due the complexity surgery and the need for a skilled rn surgical. She assisted in positioning, draping, retraction, and closure of the wound.
[2022-04-24 11:58] VITALS: RESP 16; TEMP 96.8
[2022-04-24] MEDS ORDERED: ceFAZolin 2 GM in SODIUM CHLORIDE 0.9% 100 ML IVPB ONE (12:13)
[2022-04-24] MEDS ORDERED: LACTATED RINGERS 1,000 ML IV ONE (12:49)
[2022-04-24] MEDS ORDERED: HYDROmorphone 0.5 MG/0.5 ML SYRINGE IVP ONE (13:10)
--- NOTE | 2022-04-24 13:11 | XR ---
EXAMINATION TYPE: XR knee limited LT DATE OF EXAM: 04/24/2022 COMPARISON: 02/02/2015 HISTORY: Postop TKA TECHNIQUE: 2 view left knee FINDINGS: There is been placement of tibial femoral components for a left knee prosthesis. Postsurgic al changes within the soft tissues. No acute fractures are evident. IMPRESSION: 1. No acute fracture post knee replacement.
[2022-04-24] MEDS ORDERED: HYDROcodone/APAP 10-325MG 1 EACH TAB ONE (13:58)
[2022-04-24] MEDS ORDERED: ONDANSETRON ODT 4 MG TAB PO ONE (14:00)
[2022-04-24] MEDS ORDERED: HYDROcodone/APAP 10-325MG 1 EACH TAB PO ONE (14:01)
[2022-04-24 14:11] VITALS: BP 152/78; PULSE 74
[2022-04-24] MEDS ORDERED: ceFAZolin 10 GM VIAL IVPB ONE (14:21)
== END 2022-04-24 15:36 | disposition home or self-care (01) ==
LOC: OR 07:53
PROVIDERS: ATTEND Orthopaedic Surgery
DX: M17.12 Unilateral primary osteoarthritis, left knee (principal); R01.1 Cardiac murmur, unspecified; I10 Essential (primary) hypertension; E78.5 Hyperlipidemia, unspecified; Z87.891 Personal history of nicotine dependence; K21.9 Gastro-esophageal reflux disease without esophagitis; M10.9 Gout, unspecified; K44.9 Diaphragmatic hernia without obstruction or gangrene; G43.909 Migraine, unspecified, not intractable, without status migrainosus; Z87.01 Personal history of pneumonia (recurrent); Z90.49 Acquired absence of other specified parts of digestive tract; Z87.11 Personal history of peptic ulcer disease; Z87.442 Personal history of urinary calculi; Z97.3 Presence of spectacles and contact lenses; Z98.891 History of uterine scar from previous surgery; Z98.890 Other specified postprocedural states; Z79.1 Long term (current) use of non-steroidal anti-inflammatories (NSAID); Z79.891 Long term (current) use of opiate analgesic; Z79.899 Other long term (current) drug therapy; Z91.041 Radiographic dye allergy status; Z88.5 Allergy status to narcotic agent; Z88.8 Allergy status to other drugs, medicaments and biological substances; Z91.048 Other nonmedicinal substance allergy status; Z91.09 Other allergy status, other than to drugs and biological substances
CPT/HCPCS: 27447; 97110; 97161; 64999; 64448; 76942; 88300; 73560; C1713; C1776; J2250; J1100; J0690 ×2; J2405; J3010; J1170 ×2; J2795; J0330; J2704; J2001

== ENCOUNTER → 2022-05-31 | Outpatient (CLI) | payer MEDICAID ==
[2022-05-31 15:07] LABS: HCT 40.4 % (37.2-46.3); HGB 12.4 g/dL (12.0-15.0); MCH 26.3 pg (27.0-32.0); MCHC 30.7 g/dL (32.0-37.0); MCV 85.6 fL (80.0-97.0); Mean Platelet Volume 11.7 fL (9.5-12.2); NRBC Per 100 WBC 0 /100 WBCS (0.0-0.0); Platelet Count 301 X 10*3/uL (140-440); RBC 4.72 X 10*6/uL (4.10-5.20); RDW 15.2 % (11.5-14.5); WBC 10.25 X 10*3/uL (4.50-10.00)
[2022-06-01 00:28] LABS: T4, Free (Free Thyroxine) 1.35 ng/dL (0.800-1.800)
[2022-06-01 00:55] LABS: African American GFR (CKD) 43.6 (60.0-200.0); Albumin 4.1 g/dL (3.8-4.9); Albumin/Globulin Ratio 1.64 (1.60-3.17); Anion Gap 18.3 mmol/L (10.00-18.00); BUN/Creat Ratio 16.03 Ratio (12.00-20.00); Blood Urea Nitrogen 23.4 mg/dL (9.0-27.0); Calcium 9.9 mg/dL (8.7-10.3); Carbon Dioxide 22.6 mmol/L (20.0-27.5); Globulin 2.5 g/dL (1.6-3.3); Non-African American GFR(CKD) 37.7 (60.0-200.0); Total Bilirubin 0.3 mg/dL (0.30-1.20); Total Protein 6.5 g/dL (6.2-8.2)
== END | disposition home or self-care (01) ==
LOC: LABWHC1 10:39
PROVIDERS: ATTEND Family Medicine
DX: N20.0 Calculus of kidney (principal); M12.9 Arthropathy, unspecified; K44.9 Diaphragmatic hernia without obstruction or gangrene; G43.009 Migraine without aura, not intractable, without status migrainosus
CPT/HCPCS: 36415; 80053; 82607; 82746; 84439; 84443; 85027

== ENCOUNTER → 2022-11-20 | Outpatient (CLI) | payer MEDICAID ==
--- NOTE | 2022-11-21 20:13 | MM ---
Reason for Exam: Screening (asymptomatic). Last screening mammogram was performed 12 month(s) ago. Patient History: Menarche at age 16. First Full-Term at age 19. Postmenopausal. Patient has history of breast feeding. Maternal grandmother had breast cancer. Risk Values: Mary Kay 5 year model risk: 1.1%. NCI Lifetime model risk: 4.2%. Prior Study Comparison: 08/11/2019 Bilateral Screening Mammogram, [facility]. 08/16/2020 Bilateral Screening Mammogram, [facility]. 11/18/2021 Bilateral Screening Mammogram, [facility]. Tissue Density: There are scattered fibroglandular densities. Findings: Analyzed By CAD. Frontal nodularity central left breast anterior to middle depth. There is no suspicious group of microcalcifications or new suspicious mass in either breast. Overall Assessment: Benign, BI-RAD 2 Management: Screening Mammogram of both breasts in 1 year. 1. Patient should continue monthly self breast exams. 2. A clinical breast exam by your physician is recommended on an annual basis. 3. This exam should not preclude additional follow-up of suspicious palpable abnormalities. Electronically signed and approved by: Aj Spear M.D. Radiologist
== END | disposition home or self-care (01) ==
LOC: RADMAMWWP 16:53
PROVIDERS: ATTEND Family Medicine
DX: Z12.31 Encounter for screening mammogram for malignant neoplasm of breast (principal); Z78.0 Asymptomatic menopausal state; Z80.3 Family history of malignant neoplasm of breast
CPT/HCPCS: 77067

== ENCOUNTER → 2023-12-24 | Outpatient (CLI) | payer MEDICAID ==
--- NOTE | 2023-12-25 09:15 | MM ---
Reason for Exam: Screening (asymptomatic). Last mammogram was performed 1 year(s) and 1 month(s) ago. Patient History: Menarche at age 16. First Full-Term at age 19. Postmenopausal. Patient has history of breast feeding. Maternal grandmother had breast cancer. Risk Values: Mary Kay 5 year model risk: 1.1%. NCI Lifetime model risk: 4.0%. Prior Study Comparison: 08/16/2020 Bilateral Screening Mammogram, [facility]. 11/18/2021 Bilateral Screening Mammogram, [facility]. 11/20/2022 Bilateral MG screening mammo w CAD, [facility]. Tissue Density: There are scattered fibroglandular densities. Findings: Analyzed By CAD. There is no suspicious group of microcalcifications or new suspicious mass in either breast. Benign-appearing calcification. Asymmetric density in the central portion of the right breast seen on CC view only. Spot compression CC view and rolled cc LV recommended. Overall Assessment: Incomplete: need additional imaging evaluation, BI-RAD 0 Management: Diagnostic Mammogram of the right breast. . Patient should continue monthly self-breast exams. A clinical breast exam by your physician is recommended on an annual basis. This exam should not preclude additional follow-up of suspicious palpable abnormalities. Note on Mary Kay scores and lifetime risk: 1. A Mary Kay score greater than 3% is considered moderate risk. If this is the case, consider specialist referral to assess eligibility for a risk reducing agent. 2. If overall lifetime risk for the development of breast cancer is 20% or higher, the patient may qualify for future screening with alternating mammogram and breast MRI. Electronically signed and approved by: Dao Yancey M.D. Radiologis
== END | disposition home or self-care (01) ==
LOC: RADMAMWWP 12:32
PROVIDERS: ATTEND Family Medicine
DX: Z12.31 Encounter for screening mammogram for malignant neoplasm of breast (principal); Z80.3 Family history of malignant neoplasm of breast; Z78.0 Asymptomatic menopausal state
CPT/HCPCS: 77067

== ENCOUNTER → 2023-12-28 | Outpatient (CLI) | payer MEDICAID ==
--- NOTE | 2023-12-28 13:48 | MM ---
Reason for Exam: Additional evaluation requested from abnormal screening. Last screening mammogram was performed less than 1 month ago. Patient History: Menarche at age 16. First Full-Term at age 19. Postmenopausal. Patient has history of breast feeding. Maternal grandmother had breast cancer. Risk Values: Mary Kay 5 year model risk: 1.1%. NCI Lifetime model risk: 4.0%. Tissue Density: Right: There are scattered fibroglandular densities. Findings: Analyzed By CAD. The central outer asymmetric density right cc view middle depth disperses on additional views. It is compatible with superimposition shadow. Overall Assessment: Benign, BI-RAD 2 Management: Screening Mammogram of both breasts in 1 year. . Results were given to the patient verbally at the time of exam. Patient should continue monthly self-breast exams. A clinical breast exam by your physician is recommended on an annual basis. This exam should not preclude additional follow-up of suspicious palpable abnormalities. Note on Mary Kay scores and lifetime risk: 1. A Mary Kay score greater than 3% is considered moderate risk. If this is the case, consider specialist referral to assess eligibility for a risk reducing agent. 2. If overall lifetime risk for the development of breast cancer is 20% or higher, the patient may qualify for future screening with alternating mammogram and breast MRI. Electronically signed and approved by: Aj Spear M.D. Radiologist
== END | disposition home or self-care (01) ==
LOC: RADMAMWWP 13:26
PROVIDERS: ATTEND Family Medicine
DX: R92.321 Mammographic fibroglandular density, right breast (principal); Z78.0 Asymptomatic menopausal state; Z80.3 Family history of malignant neoplasm of breast
CPT/HCPCS: 77061; 77065

== ENCOUNTER → 2025-03-03 | Outpatient (CLI) | payer MEDICAID ==
--- NOTE | 2025-03-04 07:16 | MM ---
Reason for Exam: Screening (asymptomatic). Last mammogram was performed 1 year(s) and 2 month(s) ago. Patient History: Menarche at age 16. First Full-Term at age 19. Postmenopausal. Patient has history of breast feeding. Maternal grandmother had breast cancer, age 80. Risk Values: Mary Kay 5 year model risk: 1.1%. NCI Lifetime model risk: 3.8%. Tissue Density: There are scattered areas of fibroglandular density. Findings: A few tiny benign round calcifications bilaterally are redemonstrated. Some benign-appearing vascular calcifications in the right breast is again seen. Benign-appearing bilateral axillary lymph nodes are redemonstrated. There is no suspicious new group of microcalcifications or new suspicious mass in either breast. Overall Assessment: Benign, BI-RAD 2 Management: Screening Mammogram of both breasts in 1 year. . Patient should continue monthly self-breast exams. A clinical breast exam by your physician is recommended on an annual basis. This exam should not preclude additional follow-up of suspicious palpable abnormalities. Note on Mary Kay scores and lifetime risk: 1. A Mary Kay score greater than 3% is considered moderate risk. If this is the case, consider specialist referral to assess eligibility for a risk reducing agent. 2. If overall lifetime risk for the development of breast cancer is 20% or higher, the patient may qualify for future screening with alternating mammogram and breast MRI. [facility], , 03/04/2025 7:14 AM. Electronically signed and approved by: Anand Ingram M.D.
== END | disposition home or self-care (01) ==
LOC: RADMAMWWP 16:23
PROVIDERS: ATTEND Family Medicine
DX: Z12.31 Encounter for screening mammogram for malignant neoplasm of breast (principal); R92.323 Mammographic fibroglandular density, bilateral breasts; R92.1 Mammographic calcification found on diagnostic imaging of breast; Z78.0 Asymptomatic menopausal state; Z80.3 Family history of malignant neoplasm of breast
CPT/HCPCS: 77063; 77067